=== PATIENT | female | born 1955 | race Caucasian/White ===

== ENCOUNTER 2018-10-03 06:17 | Day surgery (SDC) | payer MEDICARE, OTHER ==
[~2018-10-03] VITALS: Ht 157.5 cm; Wt 73.6 kg
[~2018-10-03 06:17] MED LIST: SODIUM CHLORIDE 0.9% 1,000 ML IV ONE
[2018-10-03] MEDS ORDERED: SODIUM CHLORIDE 0.9% 1,000 ML IV ONE (06:30)
[2018-10-03] MEDS ORDERED: ADV500 IH (06:59)
[2018-10-03] MEDS ORDERED: SUCR1TAB PO (06:59)
[2018-10-03] MEDS ORDERED: BACL10TA PO (06:59)
[2018-10-03] MEDS ORDERED: NICO2GUM PO (06:59)
[2018-10-03] MEDS ORDERED: LEVO75 PO (06:59)
[2018-10-03] MEDS ORDERED: GABA-531 PO (06:59)
[2018-10-03] MEDS ORDERED: DULO30CA2 PO (06:59)
[2018-10-03] MEDS ORDERED: ALBU8HFA IH (06:59)
[2018-10-03] MEDS ORDERED: OMEP20 PO (06:59)
[2018-10-03] MEDS ORDERED: TIOT4MIS2 IH (06:59)
[2018-10-03] MEDS ORDERED: VARE1TAB22 PO (06:59)
[2018-10-03] MEDS ORDERED: MIDAZOLAM HCL 2 MG/2 ML VIAL ONE (08:22)
[2018-10-03] MEDS ORDERED: FentaNYL CITRATE-PF 100 MCG/2 ML VIAL ONE (08:22)
[2018-10-03] MEDS ORDERED: MethylPREDNISolone SOD SUCC 125 MG/2 ML VIAL IVP ONE (08:45)
[2018-10-03] MEDS ORDERED: OXYGEN THERAPY IH SCH (20:00)
== END 2018-10-03 08:50 | disposition home or self-care (01) ==
LOC: EDSEX 06:17 → SURGERY 06:17
PROVIDERS: ATTEND Internal Medicine Critical Care Medicine
DX: J38.4 Edema of larynx (principal); B37.0 Candidal stomatitis; J98.8 Other specified respiratory disorders; J44.9 Chronic obstructive pulmonary disease, unspecified; E03.9 Hypothyroidism, unspecified; F41.9 Anxiety disorder, unspecified; Z79.899 Other long term (current) drug therapy; F17.210 Nicotine dependence, cigarettes, uncomplicated; Z98.41 Cataract extraction status, right eye; Z98.42 Cataract extraction status, left eye; Z98.890 Other specified postprocedural states; Z53.8 Procedure and treatment not carried out for other reasons
CPT/HCPCS: J2250; J3010; J7030

== ENCOUNTER 2018-12-05 06:29 | Day surgery (SDC) | payer MEDICARE, OTHER ==
[~2018-12-05] VITALS: Ht 152.4 cm; Wt 75.0 kg
[~2018-12-05 06:29] MED LIST changes: +ADV500 IH; +ALBU8HFA IH; +BACL10TA PO; +DULO30CA2 PO; +GABA-531 PO; +LEVO75 PO; +NICO2GUM PO; +OMEP20 PO; +SUCR1TAB PO; +TIOT4MIS2 IH; +VARE1TAB22 PO
[2018-12-05] MEDS ORDERED: MIDAZOLAM HCL 2 MG/2 ML VIAL IVP ONE (06:30)
[2018-12-05] MEDS ORDERED: SODIUM CHLORIDE 0.9% 1,000 ML IV ONE ×2 (06:30)
[2018-12-05] MEDS ORDERED: ALBUTEROL SULFATE 2.5 MG/0.5 ML NEB SOLUTION NEB ONE (06:30)
[2018-12-05] MEDS ORDERED: BENZOCAINE 20% 50 MCG/SPRAY 57 GM TP ONE (06:30)
[2018-12-05] MEDS ORDERED: LIDOCAINE 2% 5 ML JELLY TP ONE (06:30)
[2018-12-05] MEDS ORDERED: LIDOCAINE 4% 50 ML SOLUTION TP ONE (06:30)
[2018-12-05] MEDS ORDERED: MethylPREDNISolone SOD SUCC 125 MG/2 ML VIAL IVP ONE (09:00)
[2018-12-05] MEDS ORDERED: MethylPREDNISolone SOD SUCC 125 MG/2 ML VIAL ONE (09:06)
[2018-12-05] MEDS ORDERED: OXYGEN THERAPY IH SCH (20:00)
== END 2018-12-05 10:20 | disposition home or self-care (01) ==
LOC: SURGERY 06:29
PROVIDERS: ATTEND Internal Medicine Critical Care Medicine
DX: J38.4 Edema of larynx (principal); B37.0 Candidal stomatitis; J44.9 Chronic obstructive pulmonary disease, unspecified; J98.8 Other specified respiratory disorders; I10 Essential (primary) hypertension; K21.9 Gastro-esophageal reflux disease without esophagitis; F41.9 Anxiety disorder, unspecified; E66.3 Overweight; E03.9 Hypothyroidism, unspecified; F17.210 Nicotine dependence, cigarettes, uncomplicated; Z79.899 Other long term (current) drug therapy; Z98.890 Other specified postprocedural states
CPT/HCPCS: 31623; 31624; 71045; 87015; 87070; 87101; 87205; 87206; 87220; 88108; 88312; J2250; J2930; J7030